=== PATIENT | male | born 1945 | race Caucasian/White ===

== ENCOUNTER → 2018-12-10 | Outpatient (CLI) | payer OTHER ==
[~2018-12-10] MED LIST: ABAC300; ALUMAGSIMA PO; AMLO5 PO; AMOCLA875 PO; ASCO500 PO; ASPI325 PO; ASPI325EC PO; ASPI500 PO; ASPI81CH; ASPI81CH PO; ATOR40TA; ATOR40TA PO; ATOR80 PO; CAPHYD PO; CARB50; CARV6.25 PO; CELE200 PO; CHOL10002 PO; CINNAMON PO; CLOP75; CLOP75 PO; CYAN500 PO; Crestor20 MG PO; ESOM20; ESOM20 PO; FERR325; FLUSAL1005; FLUSAL1005 IH; Ferrous Sulfat324 MG PO; INVOKANA100 MG PO; IRON150C PO; LISHYD1012 PO; LISHYD2025 PO; LISI20 PO; METF500 PO; METF500C PO; MILK THISTLE PO; MILK THISTLE1 GM MT; NITRSPRAY; Nitrostat0.4 MG SL; OMEG1CAP30 PO; OSTEO BI-FLEX1 EAC3 PO; PANT40 PO; RAMI5; RANO500T PO; ROSI4; Ranexa1000 MG; SIMV40 PO; SITA100T2 PO; VITAMIN B-12; VITAMIN D400 UNI1 PO; Vitamin C100 M1 PO; [UNRECOGNIZED DRUG - CODE] SL; [UNRECOGNIZED DRUG - REMARK]
== END | disposition home or self-care (01) ==
LOC: LAB 19:30 → LAB SHORT 19:30
DX: R63.4 Abnormal weight loss (principal); R19.7 Diarrhea, unspecified; Z79.2 Long term (current) use of antibiotics
CPT/HCPCS: 87015; 87045; 87046; 87177; 87205; 87209; 87493; 87899

== ENCOUNTER 2019-04-18 07:31 | Inpatient (IN) | payer OTHER ==
[~2019-04-18] VITALS: Ht 172.7 cm; Wt 77.0 kg
[~2019-04-18 07:31] MED LIST changes: -LISHYD1012 PO; +ZESTORETIC 20-251 EA PO
[2019-04-18] MEDS ORDERED: TRULICITY1.5 MG/0.5 SC (07:39)
[2019-04-18 08:15] LABS: BASOPHILS PERCENT AUTO 0 % (0-2); EOSINOPHILS PERCENT AUTO 0 % (0-6); Hemoglobin 10.9 g/dL (13.5-17.5); IMMATURE GRAN ABSOLUTE AUTO 0.02 K/mm3 (0.00-0.10); IMMATURE GRAN PERCENT AUTO 0 % (0-1); LYMPHOCYTES ABSOLUTE AUTO 2.13 K/mm3 (0.84-5.20); LYMPHOCYTES PERCENT AUTO 23 % (21-46); MONOCYTES ABSOLUTE AUTO 0.59 K/mm3 (0.16-1.47); MONOCYTES PERCENT AUTO 6 % (4-13); Mean Corpuscular HGB 30.9 pg (26.0-34.0); Mean Corpuscular HGB Conc 32.1 g/dL (31.5-36.5); Mean Corpuscular Volume 96 fL (80-100); Mean Platelet Volume 11.7 fL (9.1-12.4); NEUTROPHILS PERCENT AUTO 70 % (41-73); Platelet Count 189 K/mm3 (150-400); RDW Coefficient Variation 13.4 % (11.7-14.2); RDW Standard Deviation 47.4 fL (35.1-46.3); Red Blood Cell Count 3.53 M/mm3 (4.30-5.90); White Blood Cell Count 9.24 K/mm3 (4.00-11.30)
[2019-04-18 08:36] LABS: Alanine Aminotransfer (ALT/SGP 40 U/L (12-78); Albumin/Globulin Ratio 0.8 (0.8-1.8); Alk Phos 65 U/L (50-136); Anion Gap 8 mmol/L (6-16); Aspartate Aminotrans (AST/SGOT 20 U/L (12-37); Bilirubin, Total 0.3 mg/dL (0.1-1.0); Blood Urea Nitrogen 49 mg/dL (8-24); Bun/Creatinine Ratio 40.8 (12.0-20.0); CO2, Blood 21 mmol/L (21-32); Calcium, Blood 8.3 mg/dL (8.5-10.1); Chloride, Blood 112 mmol/L (98-108); Globulin, Blood 3.8 g/dL (2.2-4.0); Glomerular Filtration Rate >60 (60-); Glucose, Blood 354 mg/dL (70-99); Potassium, Blood 5.3 mmol/L (3.5-5.5); Sodium, Blood 141 mmol/L (136-145); Total Protein, Blood 6.8 g/dL (6.4-8.2); Troponin I <0.015 ng/mL (0.000-0.040)
[2019-04-18 10:53] LABS: International Normalized Ratio 1.06; Prothrombin Time Results 11.2 Sec (9.7-11.5)
[2019-04-18] MEDS ORDERED: ALBU90OI INH (12:10)
[2019-04-18] MEDS ORDERED: Glucosamine H1500 MG PO (12:11)
[2019-04-18] MEDS ORDERED: VITAMIN D5000 UNI1 PO (12:11)
[2019-04-18] MEDS ORDERED: Aspir 8181 MG PO (12:12)
[2019-04-18 13:19] LABS: Hematocrit 32.7 % (37.0-53.0); Hemoglobin 10.8 g/dL (13.5-17.5)
--- NOTE | 2019-04-18 15:42 | NUR ---
PT RESTING IN BED VISITING WITH FAMILY. PT IS CURRENTLY NPO FOR POSSIBLE ENDOSCOPY TONIGHT. CALLED SAME DAY AND THEY REPORT THAT THEY TENATIVELY WILL TAKE THE PT BETWEEN [phone]. PT HAS HAD NO BM'S SINCE ARRIVING TO DEPARTMENT. VITALS ARE CURRENTLY STABLE.
--- NOTE | 2019-04-18 16:05 | NUR ---
PT TO SAME DAY SURGERY FOR ENDOSCOPE.
--- NOTE | 2019-04-18 16:22 | NUR ---
ARRIVED INTO [facility] ADMISSION TO UNIT STARTED
--- NOTE | 2019-04-18 16:35 | NUR ---
04/18/19 1635 Ananth Lazo See Anesthesia record. Bite Block Placed. 3-LEAD EKG REVIEWED WITH PHYSICIAN PRIOR TO START OF PROCEDURE. Patient to ENDO 1History, Chart, Medications and Allergies reviewed before start of procedure. MONITOR INTACT WITH CONTINUOUS PULSE OXIMETRY AND INTERMITTENT BP. O2 VIA N/C INTACT THROUGHOUT SEDATION/PROCEDURE.
--- NOTE | 2019-04-18 17:14 | NUR ---
PT ARRIVED BACK FROM SAME DAY SURGERY. KELLY RN, REPORTED NO ACTIVE BLEED FOUND, OLD CLOTS IN STOMACH AND LEFT OVER FOOD. POSSIBLE REPEAT SCOPE TOMORROW IF PT'S H/H DROPS. PT IS DROWSY, BUT ABLE TO SUPPORT HIS OWN WEIGHT WHILE TRANSFERING. PT DECLINES ANY DIZZINESS AT THIS TIME. ORDERS ALLOW PT TO HAVE CLEAR LIQUIDS, PT GIVEN WATER TO HELP HIS DRY MOUTH. PER ELECTRONIC WARFARE SPECIALIST, PT REMAINS IN A-FIB. LUNGS ARE CLEAR AND PT IS ON ROOM AIR. VITALS ARE STABLE.
[2019-04-18 17:43] LABS: Hematocrit 32.3 % (37.0-53.0); Hemoglobin 10.4 g/dL (13.5-17.5)
--- NOTE | 2019-04-18 18:26 | NUR ---
SHIFT SUMMARY PT IS RECOVERY WELL FROM ENDOSCOPY. VSS. PT AMBULATED TO BATHROOM AND HAD ONE BM WHICH WAS BLACK IN COLOR. PT REMAINS IN A-FIB POST PROCEDURE PER TELE. PT IS BECOMING MORE ALERT AND IS CURRENTLY WATCHING TV. PT TOLERATED A CLEAR LIQUID DIET.
[2019-04-18 21:20] LABS: Hematocrit 28.6 % (37.0-53.0); Hemoglobin 9.4 g/dL (13.5-17.5)
--- NOTE | 2019-04-19 00:24 | NUR ---
0020 PT COMPLAINT OF 12/14 SUDDEN CP. SUBLING NITRO GIVEN X1 PER ORDERS WITH RELIEF DOWN TO 2/10 PER PT. VSS. PT STATES: "THIS HAPPENS ON OCCASION".
[2019-04-19 03:42] LABS: BASOPHILS ABSOLUTE AUTO 0.02 K/mm3 (0.00-0.23); BASOPHILS PERCENT AUTO 0 % (0-2); EOSINOPHILS ABSOLUTE AUTO 0.03 K/mm3 (0.00-0.68); EOSINOPHILS PERCENT AUTO 0 % (0-6); Hematocrit 27.9 % (37.0-53.0); IMMATURE GRAN ABSOLUTE AUTO 0.03 K/mm3 (0.00-0.10); IMMATURE GRAN PERCENT AUTO 0 % (0-1); LYMPHOCYTES ABSOLUTE AUTO 2.24 K/mm3 (0.84-5.20); LYMPHOCYTES PERCENT AUTO 30 % (21-46); MONOCYTES ABSOLUTE AUTO 0.57 K/mm3 (0.16-1.47); MONOCYTES PERCENT AUTO 8 % (4-13); Mean Corpuscular HGB 31.4 pg (26.0-34.0); Mean Corpuscular HGB Conc 32.3 g/dL (31.5-36.5); Mean Corpuscular Volume 97 fL (80-100); Mean Platelet Volume 11.5 fL (9.1-12.4); NEUTROPHILS ABSOLUTE AUTO 4.47 K/mm3 (1.96-9.15); NEUTROPHILS PERCENT AUTO 61 % (41-73); Platelet Count 152 K/mm3 (150-400); RDW Coefficient Variation 13.5 % (11.7-14.2); RDW Standard Deviation 48.7 fL (35.1-46.3); Red Blood Cell Count 2.87 M/mm3 (4.30-5.90); White Blood Cell Count 7.36 K/mm3 (4.00-11.30)
[2019-04-19 03:56] LABS: Anion Gap 6 mmol/L (6-16); Blood Urea Nitrogen 44 mg/dL (8-24); Bun/Creatinine Ratio 39.3 (12.0-20.0); CO2, Blood 23 mmol/L (21-32); Calcium, Blood 8.1 mg/dL (8.5-10.1); Chloride, Blood 117 mmol/L (98-108); Creatinine, Blood 1.12 mg/dL (0.60-1.20); Glomerular Filtration Rate >60 (60-); Glucose, Blood 164 mg/dL (70-99); Potassium, Blood 3.8 mmol/L (3.5-5.5); Sodium, Blood 146 mmol/L (136-145)
--- NOTE | 2019-04-19 05:55 | NUR ---
Shift Summary No acute changes overnight apart from previous note of CP which was resolved with nitro-quick x1 per orders. VSS. Breathing easy, even, unlabored of RA. Alert and Oriented, walking without assist in room, denies dizziness with ambulation. No events on tele, pt remains in controlled afib throughout night. No active signs of bleeding. Pt with no complaints throughout night of pain or of concerns. No acute declines no note. No acute concerns to note. No changes from initial shift assessment. Overall status of patient appears to be improving as evidenced by hbg stability, vss, pt alert and without complaints, no active GIB noted this shift.
--- NOTE | 2019-04-19 07:30 | NUR ---
ASSUMED CARE: PT RESTING QUIETLY AT THIS TIME. NO ACUTE NEEDS OR CONCERNS AT THIS TIME.
--- NOTE | 2019-04-19 09:22 | NUR ---
PT C/O SUDDEN LEFT CP AFTER COUGHING. 1 SL NITRO GIVEN PER PT REQUEST. PT REPORTS PAIN IS SIMILAR TO HIS EPISODES HE GETS AT HOME. DR ROMAN IS AWARE OF THESE EPISODES AND WANTS TO CONTIUE TO TREAT PER PT'S HOME REGIMEN. PT'S WAS D/C'D PRIOR TO CP EPISODE PER DR'S ORDERS. PT FELT IMMEDIATE RELIEF AFTER SL NITRO. PT HAD DROP IN BP POST NITRO ADMINISTRATION SYSTOLIC 80'S, BUT RECOVERED SHORTLY AFTER.
--- NOTE | 2019-04-19 11:23 | NUR ---
TRANSFER OF CARE REPORT GIVEN TO MELISSA CANALES. PT HAS BEEN TRANSFERED TO MEDICAL FLOOR ROOM 328 WITH NO TELE PER ORDERS. ALL BELONGINGS GATHERED AND TRANSFERRED WITH PT. PCT ESCORTED PT TO MEDICAL VIA WHEELCHAIR.
--- NOTE | 2019-04-19 13:41 | NUR ---
PT BROUGHT TO [facility] VIA STRETCHER APPROX 15 MINUTES AGO. PATIENT ALERT, ORIENTED. AT BEDSIDE. NO C/O PAIN OR DISCOMFORT. ANESTHESISA HERE TO SEE PATIENT FOR PLANNED EGD WITH MAC.
--- NOTE | 2019-04-19 14:00 | NUR ---
UPDATE: NO ANESTHESIA FOR CASE - NURSE SEDATION
--- NOTE | 2019-04-19 14:50 | NUR ---
PATIENT BACK FROM DAY SURGERY. VSS, ON RA. PATIENT ABLE TO TRANSFER WITH A SBA. PROTONIX GTT AND IV FLUIDS RESUMED.
[2019-04-19 15:27] LABS: Hematocrit 26.9 % (37.0-53.0); Hemoglobin 8.8 g/dL (13.5-17.5)
--- NOTE | 2019-04-19 18:00 | NUR ---
PATIENT TRANSFERRED FROM PCU TODAY. WENT DOWN FOR A SECOND ENDOSCOPY THIS AFTERNOON. PROTONIX GTT D/C'D AND PATIENT PUT ON PROTONIX PUSHES BID. VSS, ON RA. DENIES ANY PAIN OR TENDERNESS. UP WITH SBA TO RESTROOM. REPORTS 1 BLACK STOOL TODAY, NO STOOL SINCE TRANSFERRING TO MEDICAL FLOOR. SKIN INTACT. 20G IV TO L AC WNL, NS @ 75ML/HR INFUSING. AT BEDSIDE FOR MOST OF THIS SHIFT. TOLERATING CLEAR LIQUIDS. ACHS BLOOD SUGARS, NO COVERAGE NEEDED TODAY. PATIENT IS A/OX4, CALM AND COOPERATIVE WITH CARE.
--- NOTE | 2019-04-19 19:50 | NUR ---
PATIENT WATCHING TV, DENIES ANY PAIN OR DISCOMFORT. DENIES ANY CHEST PAIN AT THIS TIME. IV INFUSING WITH NO PROBLEMS. ASSESSMENT COMPLETED SEE CHART. CALL LIGHT IN REACH.
[2019-04-20 04:59] LABS: BASOPHILS ABSOLUTE AUTO 0.01 K/mm3 (0.00-0.23); BASOPHILS PERCENT AUTO 0 % (0-2); EOSINOPHILS ABSOLUTE AUTO 0.09 K/mm3 (0.00-0.68); EOSINOPHILS PERCENT AUTO 2 % (0-6); Hematocrit 23.9 % (37.0-53.0); Hemoglobin 7.8 g/dL (13.5-17.5); IMMATURE GRAN ABSOLUTE AUTO 0.02 K/mm3 (0.00-0.10); IMMATURE GRAN PERCENT AUTO 0 % (0-1); LYMPHOCYTES ABSOLUTE AUTO 1.78 K/mm3 (0.84-5.20); LYMPHOCYTES PERCENT AUTO 31 % (21-46); MONOCYTES ABSOLUTE AUTO 0.39 K/mm3 (0.16-1.47); MONOCYTES PERCENT AUTO 7 % (4-13); Mean Corpuscular HGB 31.7 pg (26.0-34.0); Mean Corpuscular HGB Conc 32.6 g/dL (31.5-36.5); Mean Corpuscular Volume 97 fL (80-100); Mean Platelet Volume 11.5 fL (9.1-12.4); NEUTROPHILS ABSOLUTE AUTO 3.37 K/mm3 (1.96-9.15); NEUTROPHILS PERCENT AUTO 60 % (41-73); Platelet Count 120 K/mm3 (150-400); RDW Coefficient Variation 13.3 % (11.7-14.2); RDW Standard Deviation 47.8 fL (35.1-46.3); Red Blood Cell Count 2.46 M/mm3 (4.30-5.90); White Blood Cell Count 5.66 K/mm3 (4.00-11.30)
--- NOTE | 2019-04-20 06:00 | NUR ---
SHIFT SUMMARY: 73 Y/O MALE ADMITTED FOR GI BLEED. TABBY HAD NO EPISODES OF DARK STOOLS, NAUSEA THIS SHIFT. IV HAS REMAINED PATENT AND INFUSING AT 75ML/HR. DENIED ANY EPISODES OF DIZZINES, LIGHTHEADNESS OR CHEST PAIN. MEDS WERE GIVEN PER EMAR. NO ACUTE CHANGES THIS SHIFT. CALL LIGHT REMAINED WITH IN REACH. WILL REPORT TO DAY SHIFT RN.
--- NOTE | 2019-04-20 08:14 | NUR ---
04/20/19 0814 Joan Serna LATE ENTRY- History, Chart, Medications and Allergies reviewed before start of procedure. 3-LEAD EKG REVIEWED WITH PHYSICIAN PRIOR TO START OF PROCEDURE. MONITOR INTACT WITH CONTINUOUS PULSE OXIMETRY AND INTERMITTENT BP. O2 VIA N/C INTACT THROUGHOUT SEDATION/PROCEDURE. PATIENT DETERMINED TO BE ASA APPROPRIATE FOR PROPOFOL SEDATION PRIOR TO START OF PROCEDURE BY DR. HALL WHO REVIEWED CHART/ DR. MONTENEGRO AND DR. HALL HAD DISCUSSION PRIOR TO PROCEDURE AND AGREES TO PROCEDE WITH NURSE SEDATION W/PROPOFOL.
[2019-04-20 08:46] LABS: Hematocrit 24.4 % (37.0-53.0); Hemoglobin 7.9 g/dL (13.5-17.5)
[2019-04-20 15:08] LABS: Hemoglobin 7.8 g/dL (13.5-17.5)
--- NOTE | 2019-04-20 15:21 | NUR ---
Lungs clear T/O to Auscultation. History, Chart, Medications and Allergies reviewed before start of procedure.Patient confirms NPO status SINCE 2 PM,and agrees with scheduled surgery.
--- NOTE | 2019-04-20 15:33 | NUR ---
RECEIVED VERBAL PERMISSION FROM PATIENT TO ACCESS CHART AND PROVIDE CARE.
--- NOTE | 2019-04-20 15:46 | NUR ---
04/20/19 1546 Destiny Agarwal History, Chart, Medications and Allergies reviewed before start of procedure.PATIENT DETERMINED TO BE ASA APPROPRIATE FOR PROPOFOL SEDATION PRIOR TO START OF PROCEDURE BY MONITOR INTACT WITH CONTINUOUS PULSE OXIMETRY AND INTERMITTENT BP. 3-LEAD EKG REVIEWED WITH PHYSICIAN PRIOR TO START OF PROCEDURE.O2 VIA N/C INTACT THROUGHOUT SEDATION/PROCEDURE.
--- NOTE | 2019-04-20 18:47 | NUR ---
SHIFT SUMMARY NO ACUTE CHANGES. PATIENT DENIES PAIN, NAUSEA, AND SHORTNESS OF BREATH. PATIENT HAD ONE BLACK LOOSE STOOL THIS MORNING. PATIENT HAD CTA OF ABDOMEN TODAY AND UPPER ENDOSCOPY. PETECHIA IN STOMACH CAUTERIZED BUT NO ACTIVE BLEED WAS FOUND. PATIENT UP SBA IN ROOM. AT BEDSIDE. CALL LIGHT IN REACH.
[2019-04-21 05:03] LABS: BASOPHILS ABSOLUTE AUTO 0.01 K/mm3 (0.00-0.23); BASOPHILS PERCENT AUTO 0 % (0-2); EOSINOPHILS PERCENT AUTO 1 % (0-6); Hematocrit 22.1 % (37.0-53.0); Hemoglobin 7.3 g/dL (13.5-17.5); IMMATURE GRAN ABSOLUTE AUTO 0.02 K/mm3 (0.00-0.10); IMMATURE GRAN PERCENT AUTO 0 % (0-1); LYMPHOCYTES ABSOLUTE AUTO 1.41 K/mm3 (0.84-5.20); LYMPHOCYTES PERCENT AUTO 20 % (21-46); MONOCYTES ABSOLUTE AUTO 0.52 K/mm3 (0.16-1.47); MONOCYTES PERCENT AUTO 7 % (4-13); Mean Corpuscular HGB 31.9 pg (26.0-34.0); Mean Corpuscular Volume 97 fL (80-100); Mean Platelet Volume 11.5 fL (9.1-12.4); NEUTROPHILS ABSOLUTE AUTO 5.02 K/mm3 (1.96-9.15); NEUTROPHILS PERCENT AUTO 71 % (41-73); Platelet Count 122 K/mm3 (150-400); RDW Coefficient Variation 13.3 % (11.7-14.2); RDW Standard Deviation 47.3 fL (35.1-46.3); Red Blood Cell Count 2.29 M/mm3 (4.30-5.90); White Blood Cell Count 7.08 K/mm3 (4.00-11.30)
--- NOTE | 2019-04-21 05:04 | NUR ---
SHIFT SUMMARY: A/OX4. VSS. AFEB. 02 98-100% ON RA. MAKES NEEDS KNOWN. CALLS FOR ASSISTANCE WITH AMB TO BATHROOM. GAIT STEADY AND WELL PACED. NO LIGHT HEADEDNESS UPON STANDING. OCC DRY COUGH. FINE INSP CRACKLES AUSCULTATED IN LLL. REQUESTED NITRO FOR CHEST PAIN ON 2 SEPARATE OCCASIONS TONIGHT. CHEST PAIN RESOLVED WITH 2 MINUTES EACH TIME. REPORTS NEW LOW BACK PAIN 8/10, DOWN TO 5/10 WITH TYLENOL AND K PAD ON BACK. SLEPT MOST OF THE NIGHT. CALL BUTTON IN REACH, BED LOW.
[2019-04-21 09:27] LABS: Hemoglobin 8.1 g/dL (13.5-17.5)
--- NOTE | 2019-04-21 18:40 | NUR ---
SHIFT SUMMARY PATIENT IS PLEASANT, NO ACUTE CONCERNS AT THIS TIME. PATIENT IS INDEPENDENT IN THE ROOM, DENIES PAIN OR SHORTNESS OF BREATH. MOVED TO REGULAR DIET. PATIENT TOLERATING THINGS WELL.
--- NOTE | 2019-04-21 22:33 | NUR ---
PT REPORTED TWINGE OF CHEST PAIN AFTER COUGHING. STATES HE TAKES NITRO AT HOME OCCASIONALLY FOR CHEST PAIN, STATES HE HAS CARDIAC PROBLEMS. VS 131/56, HR 67. ONE NITRO GIVEN. WILL REASSESS FOR CHEST PAIN AND VITAL SIGNS. CALL LT IN REACH.
--- NOTE | 2019-04-21 22:49 | NUR ---
120/57, HR 64. PT REPORTS NO CHEST PAIN AT THIS TIME. VSS.
--- NOTE | 2019-04-22 03:39 | NUR ---
AT APPROX 0140 PT C/O CP. HOLDING L SIDE OF CHEST SOB AND GRIMACING. GAVE NITRO PER EMAR AND AFTER 5 MIN STILL NO RELIEF SO GAVE 2ND DOSE OF NITRO AFTER TAKING BP OF 130/58. AFTER 2ND DOSE HE SAID THE PAIN WAS EASING UP BUT NOT ALL THE WAY GONE YET. GAVE 3RD DOSE AFTER 5 MIN AND THIS WAS ABLE TO TAKE THE PAIN AWAY COMPLETELY. NOTIFIED DR GONZALES AND HE ORDERED EKG AND TROPONIN C AM LABS AND TELE. TELE SHOWED SINUS SELENE @ 59 AT 0315 PER CHURN TENDER.
[2019-04-22 04:52] LABS: BASOPHILS ABSOLUTE AUTO 0.01 K/mm3 (0.00-0.23); BASOPHILS PERCENT AUTO 0 % (0-2); EOSINOPHILS ABSOLUTE AUTO 0.13 K/mm3 (0.00-0.68); EOSINOPHILS PERCENT AUTO 2 % (0-6); Hematocrit 21.8 % (37.0-53.0); Hemoglobin 7.2 g/dL (13.5-17.5); IMMATURE GRAN ABSOLUTE AUTO 0.03 K/mm3 (0.00-0.10); IMMATURE GRAN PERCENT AUTO 0 % (0-1); LYMPHOCYTES ABSOLUTE AUTO 1.41 K/mm3 (0.84-5.20); LYMPHOCYTES PERCENT AUTO 18 % (21-46); MONOCYTES ABSOLUTE AUTO 0.57 K/mm3 (0.16-1.47); MONOCYTES PERCENT AUTO 7 % (4-13); Mean Corpuscular HGB 31.6 pg (26.0-34.0); Mean Corpuscular Volume 96 fL (80-100); Mean Platelet Volume 11.8 fL (9.1-12.4); NEUTROPHILS ABSOLUTE AUTO 5.67 K/mm3 (1.96-9.15); NEUTROPHILS PERCENT AUTO 73 % (41-73); Platelet Count 142 K/mm3 (150-400); RDW Coefficient Variation 13.4 % (11.7-14.2); RDW Standard Deviation 46.5 fL (35.1-46.3); Red Blood Cell Count 2.28 M/mm3 (4.30-5.90); White Blood Cell Count 7.82 K/mm3 (4.00-11.30)
--- NOTE | 2019-04-22 05:03 | NUR ---
APPROX 0410 PT C/O CP AGAIN. MEDICATED C NITRO WITH NO RELIEF SO 2ND DOSE WAS GIVEN AND HE SAID IT HELPED A LITTLE BIT. NOTIFIED DR GONZALES HE ORDERED OT ASPRIN AND OT FENTANYL PRN AND NITRO PASTE PRN. STILL HAVING SOME CP AFTER 2ND NITRO SO 3RD WAS GIVEN AND AFTER 3RD HIS CP WAS GONE HE SAID. VSS. HE SAID HE WAS NOW TIRED.
--- NOTE | 2019-04-22 07:14 | NUR ---
C/O CP AGAIN AT 0640 MEDICATED WITH FENTANYL IV OT AND THIS WAS ABLE TO RELIEVE HIS PAIN. REPORT TO DAY RN.
[2019-04-22 09:40] LABS: Hematocrit 23.8 % (37.0-53.0); Hemoglobin 7.8 g/dL (13.5-17.5)
--- NOTE | 2019-04-22 18:15 | NUR ---
SHIFT SUMMARY PATIENT ALERT AND ORIENTED. NO CHEST PAIN THIS SHIFT. HE WAS SEEN BY CARDIOLOGY. NO ACUTE CONCERNS AT THIS TIME. PATIENT IS PLEASANT. PAN SAW THE PATIENT AND REPORTS THAT HE NEEDS HIS BLOOD THINNER RESTARTED WHEN OKAYED BY DR. MONTENEGRO. DR. MONTENEGRO OKAYED THE ASPIRIN FOR NOW TO HELP THE PATIENT. PATIENT INDEPENDENT AND HAS TAKEN MULTIPLE WALKS TODAY.
--- NOTE | 2019-04-23 07:23 | NUR ---
SHIFT SUMMARY LYING IN SEMI FOWLERS WITH EYES CLOSED. HAD RESTED WELL SINCE START OF SHIFT. PT IS LOOKING FORWARD TO GOING HOME TODAY. DENIES PAIN, DISCOMFORT, OR FURTHER NEEDS AT THIS TIME. SAFETY MEASURES IN PLACE. HAND OFF GIVEN TO DAY SHIFT RN.
[2019-04-23] MEDS ORDERED: SUCR1 PO (13:06)
--- NOTE | 2019-04-23 14:23 | NUR ---
DISCHARGE SUMMARY PATIENT IS PLEASANT. ALERT AND ORIENTED. NO ACUTE CONCERNS. ALL QUESTIONS ANSWERED. PATIENT AND AT BEDSIDE WITH DISCHARGE INSTRUCTIONS. ALL MEDICATIONS SENT TO PATIENT'S PHARMACY OF CHOICE. NO ACUTE CONCERNS BEFORE DISCHARGE. PATIENT REFUSED WHEELCHAIR TRANSPORT FROM THE HOSPITAL. HE WALKED OUT WITH HIS .
== END 2019-04-23 13:18 | disposition home or self-care (01) | DRG 378 ==
LOC: ER 07:31 → MEDS 13:05 → PCU 13:05 → MEDS 04-19 11:22
PROVIDERS: Emergency Medicine; Hospitalist; Internal Medicine Gastroenterology; Nurse Practitioner Acute Care; ADMIT Internal Medicine
PROC: 0DJ08ZZ Inspection of Upper Intestinal Tract, Via Natural or Artificial Opening Endoscopic (ICD-10-PCS; principal; 2019-04-18 16:00)
PROC: 0W3P8ZZ Control Bleeding in Gastrointestinal Tract, Via Natural or Artificial Opening Endoscopic (ICD-10-PCS; 2019-04-19)
PROC: 0D568ZZ Destruction of Stomach, Via Natural or Artificial Opening Endoscopic (ICD-10-PCS; 2019-04-20)
DX: K55.21 Angiodysplasia of colon with hemorrhage (principal); D62 Acute posthemorrhagic anemia; I48.20 Chronic atrial fibrillation, unspecified; Z87.891 Personal history of nicotine dependence; K22.11 Ulcer of esophagus with bleeding; Z79.82 Long term (current) use of aspirin; Z95.1 Presence of aortocoronary bypass graft; E87.5 Hyperkalemia; E11.65 Type 2 diabetes mellitus with hyperglycemia; I10 Essential (primary) hypertension; Z79.84 Long term (current) use of oral hypoglycemic drugs; K44.9 Diaphragmatic hernia without obstruction or gangrene; K21.9 Gastro-esophageal reflux disease without esophagitis; Z79.02 Long term (current) use of antithrombotics/antiplatelets; I25.118 Atherosclerotic heart disease of native coronary artery with other forms of angina pectoris
CPT/HCPCS: 36415; 71046; 74174; 80048; 80053; 82272; 82947; 84484; 85014; 85018; 85025; 85610; 86850; 86900; 86901; 93005; 93010; 93306; 96365-59; 96366; 96376-59; 99285-25; A9270; C9113; J2704; J2765; J3010; J7030; J7120; Q9967

== ENCOUNTER → 2019-08-24 | Outpatient (CLI) | payer OTHER ==
[~2019-08-24] MED LIST changes: +ALBU90OI INH; +Aspir 8181 MG PO; +Glucosamine H1500 MG PO; +SUCR1 PO; +TRULICITY1.5 MG/0.5 SC; +VITAMIN D5000 UNI1 PO
== END | disposition home or self-care (01) ==
LOC: LAB SHORT 19:30 → OLS 19:30
DX: R19.7 Diarrhea, unspecified (principal)
CPT/HCPCS: 87177; 87209

== ENCOUNTER → 2019-08-25 | Outpatient (CLI) | payer OTHER | END | disposition home or self-care (01) | LOC: OLS 12:33 → LAB SHORT 12:33 | DX: R19.7 Diarrhea, unspecified (principal) | CPT/HCPCS: 87015; 87045; 87046; 87205; 87493; 87899 ==

== ENCOUNTER → 2021-02-14 | Outpatient (CLI) | payer OTHER | END | disposition home or self-care (01) | LOC: LAB SHORT 12:19 → LAB 12:19 | DX: L08.9 Local infection of the skin and subcutaneous tissue, unspecified (principal); L97.319 Non-pressure chronic ulcer of right ankle with unspecified severity | CPT/HCPCS: 87070; 87077; 87186; 87205 ==

== ENCOUNTER 2021-03-09 18:06 | Emergency (ER) | payer OTHER ==
[~2021-03-09] VITALS: Ht 177.8 cm; Wt 99.8 kg
[2021-03-09 18:31] LABS: BASOPHILS ABSOLUTE AUTO 0.02 K/mm3 (0.00-0.23); BASOPHILS PERCENT AUTO 0 % (0-2); EOSINOPHILS ABSOLUTE AUTO 0.05 K/mm3 (0.00-0.68); EOSINOPHILS PERCENT AUTO 1 % (0-6); Hematocrit 33.9 % (37.0-53.0); Hemoglobin 11.5 g/dL (13.5-17.5); IMMATURE GRAN ABSOLUTE AUTO 0.01 K/mm3 (0.00-0.10); IMMATURE GRAN PERCENT AUTO 0 % (0-1); LYMPHOCYTES ABSOLUTE AUTO 1.52 K/mm3 (0.84-5.20); LYMPHOCYTES PERCENT AUTO 24 % (21-46); MONOCYTES ABSOLUTE AUTO 0.44 K/mm3 (0.16-1.47); MONOCYTES PERCENT AUTO 7 % (4-13); Mean Corpuscular HGB 31.8 pg (26.0-34.0); Mean Corpuscular HGB Conc 33.9 g/dL (31.5-36.5); Mean Corpuscular Volume 94 fL (80-100); Mean Platelet Volume 10.9 fL (9.1-12.4); NEUTROPHILS ABSOLUTE AUTO 4.26 K/mm3 (1.96-9.15); NEUTROPHILS PERCENT AUTO 68 % (41-73); Platelet Count 177 K/mm3 (150-400); RDW Coefficient Variation 12.1 % (11.7-14.2); RDW Standard Deviation 42.1 fL (35.1-46.3); Red Blood Cell Count 3.62 M/mm3 (4.30-5.90)
[2021-03-09] MEDS ORDERED: PANT40 PO (18:31)
[2021-03-09] MEDS ORDERED: LORA10ER PO (18:33)
[2021-03-09] MEDS ORDERED: METO25ER PO (18:33)
[2021-03-09] MEDS ORDERED: BASAGLAR K100 UNIT/1 SC (18:37)
[2021-03-09] MEDS ORDERED: [UNRECOGNIZED DRUG - OTHER] PO (18:38)
[2021-03-09] MEDS ORDERED: Apple Cider Vi300 MG PO (18:41)
[2021-03-09 18:54] LABS: Alanine Aminotransfer (ALT/SGP 22 U/L (12-78); Albumin, Blood 3.1 g/dL (3.4-5.0); Albumin/Globulin Ratio 0.8 (0.8-1.8); Alk Phos 66 U/L (50-136); Anion Gap 6 mmol/L (6-16); Aspartate Aminotrans (AST/SGOT 20 U/L (12-37); Bilirubin, Total 0.4 mg/dL (0.1-1.0); Blood Urea Nitrogen 14 mg/dL (8-24); Bun/Creatinine Ratio 14.3 (12.0-20.0); CO2, Blood 26 mmol/L (21-32); Calcium, Blood 8.6 mg/dL (8.5-10.1); Chloride, Blood 110 mmol/L (98-108); Creatinine, Blood 0.98 mg/dL (0.60-1.20); Globulin, Blood 4.1 g/dL (2.2-4.0); Glomerular Filtration Rate >60 (60-); Glucose, Blood 173 mg/dL (70-99); Potassium, Blood 3.9 mmol/L (3.5-5.5); Sodium, Blood 142 mmol/L (136-145); Total Protein, Blood 7.2 g/dL (6.4-8.2)
[2021-03-09 19:48] LABS: SARS-Cov-2 (COVID-19) PCR, MMC NEGATIVE (NEGATIVE)
[2021-03-09] MEDS ORDERED: MOTION RELIEF25 MG PO (23:26)
== END 2021-03-09 23:45 | disposition home or self-care (01) ==
LOC: ER 18:06
PROVIDERS: Student in an Organized Health Care Education/Training Program
DX: R42 Dizziness and giddiness (principal); Z20.822 Contact with and (suspected) exposure to COVID-19; I25.10 Atherosclerotic heart disease of native coronary artery without angina pectoris; I10 Essential (primary) hypertension; E11.9 Type 2 diabetes mellitus without complications; K21.9 Gastro-esophageal reflux disease without esophagitis; E78.5 Hyperlipidemia, unspecified; I48.20 Chronic atrial fibrillation, unspecified; Z87.891 Personal history of nicotine dependence; Z79.82 Long term (current) use of aspirin; Z79.899 Other long term (current) drug therapy
CPT/HCPCS: 71046; 80053; 84484; 85025; 93005; 93010; 99285-25; A9270; J7030; U0004

== ENCOUNTER 2021-05-19 07:24 | Day surgery (SDC) | payer OTHER ==
[~2021-05-19] VITALS: Ht 175.3 cm; Wt 95.0 kg
[~2021-05-19 07:24] MED LIST changes: +Apple Cider Vi300 MG PO; +BASAGLAR K100 UNIT/1 SC; +LORA10ER PO; +METO25ER PO; +MOTION RELIEF25 MG PO; -VITAMIN D5000 UNI1 PO; +VITAMIN D5000 UNIT PO; +[UNRECOGNIZED DRUG - OTHER] PO
[2021-05-19] MEDS ORDERED: ELIQUIS5 M2 PO (07:49)
[2021-05-19] MEDS ORDERED: Aspir 8181 MG PO (10:08)
--- NOTE | 2021-05-19 13:12 | NUR ---
FEM STOP REMOVED PER PT UP TO BATHROOM, GROIN SITE STABLE. WALKED AROUND RECOVERY ROOM, GROIN SITE REMAINS STABLE. DISCHARGE REVIEWED WITH AND PT, BOTH VERBALIZE UNDERSTANDING OF INSTRUCTIONS.
--- NOTE | 2021-05-19 13:21 | NUR ---
SALINE LOCK REMOVED WITH CATHETER INTACT. PT DISCHARGED PER W/C WITH ONE STAFF.
== END 2021-05-19 13:30 | disposition home or self-care (01) ==
LOC: MHTC 07:24
DX: T82.855A Stenosis of coronary artery stent, initial encounter (principal); I25.718 Atherosclerosis of autologous vein coronary artery bypass graft(s) with other forms of angina pectoris; I25.84 Coronary atherosclerosis due to calcified coronary lesion; I48.0 Paroxysmal atrial fibrillation; E78.5 Hyperlipidemia, unspecified; E11.51 Type 2 diabetes mellitus with diabetic peripheral angiopathy without gangrene; I10 Essential (primary) hypertension; Y71.2 Prosthetic and other implants, materials and accessory cardiovascular devices associated with adverse incidents; Z79.4 Long term (current) use of insulin; Z79.01 Long term (current) use of anticoagulants; Z95.1 Presence of aortocoronary bypass graft; Z87.891 Personal history of nicotine dependence
CPT/HCPCS: 76937; 85347; 92920; 92937; 93459; 99152; 99153; A9270; C1725; C1760; C1769; C1887; C1894; J0461; J1644; J2250; J2370; J3010; J7030; J7050; Q9967

== ENCOUNTER 2021-06-22 07:52 | Inpatient (IN) | payer OTHER ==
[~2021-06-22] VITALS: Ht 172.7 cm; Wt 94.2 kg
[~2021-06-22 07:52] MED LIST changes: +ELIQUIS5 M2 PO
[2021-06-22 08:58] LABS: BASOPHILS ABSOLUTE AUTO 0.03 K/mm3 (0.00-0.23); BASOPHILS PERCENT AUTO 0 % (0-2); EOSINOPHILS PERCENT AUTO 1 % (0-6); Hematocrit 29.6 % (37.0-53.0); Hemoglobin 9.1 g/dL (13.5-17.5); IMMATURE GRAN ABSOLUTE AUTO 0.04 K/mm3 (0.00-0.10); IMMATURE GRAN PERCENT AUTO 0 % (0-1); LYMPHOCYTES ABSOLUTE AUTO 1.58 K/mm3 (0.84-5.20); LYMPHOCYTES PERCENT AUTO 16 % (21-46); MONOCYTES PERCENT AUTO 7 % (4-13); Mean Corpuscular HGB 30.2 pg (26.0-34.0); Mean Corpuscular HGB Conc 30.7 g/dL (31.5-36.5); Mean Corpuscular Volume 98 fL (80-100); Mean Platelet Volume 10.7 fL (9.1-12.4); NEUTROPHILS ABSOLUTE AUTO 7.28 K/mm3 (1.96-9.15); NEUTROPHILS PERCENT AUTO 75 % (41-73); Platelet Count 221 K/mm3 (150-400); RDW Coefficient Variation 13.1 % (11.7-14.2); RDW Standard Deviation 46.5 fL (35.1-46.3); Red Blood Cell Count 3.01 M/mm3 (4.30-5.90); White Blood Cell Count 9.73 K/mm3 (4.00-11.30)
[2021-06-22] MEDS ORDERED: RANEXA1000 M1 PO (09:08)
[2021-06-22] MEDS ORDERED: ISOSORBIDE MONO60 MG PO (09:08)
[2021-06-22] MEDS ORDERED: PLAVIX75 MG PO (09:09)
[2021-06-22] MEDS ORDERED: Lisinopril-Hct1 EAC4 PO (09:11)
[2021-06-22 09:29] LABS: Alanine Aminotransfer (ALT/SGP 22 U/L (12-78); Albumin, Blood 3.6 g/dL (3.4-5.0); Albumin/Globulin Ratio 0.9 (0.8-1.8); Alk Phos 82 U/L (50-136); Anion Gap 6 mmol/L (6-16); Aspartate Aminotrans (AST/SGOT 36 U/L (12-37); Bilirubin, Total 0.5 mg/dL (0.1-1.0); Blood Urea Nitrogen 21 mg/dL (8-24); Bun/Creatinine Ratio 19.8 (12.0-20.0); CO2, Blood 28 mmol/L (21-32); Calcium, Blood 9.1 mg/dL (8.5-10.1); Chloride, Blood 109 mmol/L (98-108); Creatinine, Blood 1.06 mg/dL (0.60-1.20); Globulin, Blood 4.1 g/dL (2.2-4.0); Glomerular Filtration Rate >60 (60-); Glucose, Blood 222 mg/dL (70-99); Potassium, Blood 4.3 mmol/L (3.5-5.5); Sodium, Blood 143 mmol/L (136-145); Total Protein, Blood 7.7 g/dL (6.4-8.2)
[2021-06-22 10:28] LABS: Anti-Xa UFH, PHA Monitoring <0.10 IU/mL; Prothrombin Time Results 11.5 Sec (9.7-11.5)
[2021-06-22 11:44] LABS: Influenza A, PCR NEGATIVE (NEGATIVE); Influenza B, PCR NEGATIVE (NEGATIVE); Resp Syncytial Virus, PCR NEGATIVE (NEGATIVE); SARS-Cov-2 (COVID-19) PCR, MMC NEGATIVE (NEGATIVE)
[2021-06-22 17:52] LABS: BASOPHILS ABSOLUTE AUTO 0.03 K/mm3 (0.00-0.23); BASOPHILS PERCENT AUTO 0 % (0-2); EOSINOPHILS ABSOLUTE AUTO 0.08 K/mm3 (0.00-0.68); EOSINOPHILS PERCENT AUTO 1 % (0-6); Hematocrit 32.2 % (37.0-53.0); Hemoglobin 9.6 g/dL (13.5-17.5); IMMATURE GRAN ABSOLUTE AUTO 0.03 K/mm3 (0.00-0.10); IMMATURE GRAN PERCENT AUTO 0 % (0-1); LYMPHOCYTES ABSOLUTE AUTO 1.66 K/mm3 (0.84-5.20); LYMPHOCYTES PERCENT AUTO 17 % (21-46); MONOCYTES ABSOLUTE AUTO 0.77 K/mm3 (0.16-1.47); MONOCYTES PERCENT AUTO 8 % (4-13); Mean Corpuscular HGB 30.4 pg (26.0-34.0); Mean Corpuscular HGB Conc 29.8 g/dL (31.5-36.5); Mean Corpuscular Volume 102 fL (80-100); Mean Platelet Volume 10.5 fL (9.1-12.4); NEUTROPHILS ABSOLUTE AUTO 7.18 K/mm3 (1.96-9.15); NEUTROPHILS PERCENT AUTO 74 % (41-73); Platelet Count 207 K/mm3 (150-400); RDW Coefficient Variation 13.1 % (11.7-14.2); RDW Standard Deviation 48.7 fL (35.1-46.3); Red Blood Cell Count 3.16 M/mm3 (4.30-5.90); White Blood Cell Count 9.75 K/mm3 (4.00-11.30)
--- NOTE | 2021-06-22 18:20 | NUR ---
SHIFT SUMMARY: ASSUMED CARE AT 1400 IN ED PCU HOLD. A/A/OX4, SPOUSE AT BEDSIDE, HEPARIN GTT AT 15UNITS/KG. INDEPENDANT IN ROOM, VSS, DENIES CHEST PAIN OR SOB. REPORT TO PARKER WHITE IN PCU TO ASSUME CARE AT 1800. TAKEN TO PCU ROOM 20 VIA DAYO.
--- NOTE | 2021-06-22 22:46 | NUR ---
ASSUMED CARE OF PATIENT AT START OF SHIFT. VSS. NITRO X2 AND 5MG MORPHINE GIVEN FOR CHEST PAIN. SOME DIZZINESS AND SOB WITH THIS. CHEST PAIN TOLERABLE 5/10 AFTER THIS. POWERGLIDE INSTERTED SALBADOR AND HEPARIN INFUSING AFTER ACCESS RESTORED AT 2029 AT 15UNITS/KG/HR. NO SIGNS OF BLEEDING. REPORT GIVEN TO FOUZIA CANALES AT [facility] IN [place] @2230. EMS REPORT GIVEN AND PATIENT DISCHARGED @2240 WITH NO ACUTE CONCERNS.
[2021-07-04] MEDS ORDERED: NITRO-DUR1 EAC1 TOP (16:32)
[2021-07-04] MEDS ORDERED: LOPE2C (16:32)
[2021-07-04] MEDS ORDERED: GLUCOSAMINE-CH1 EAC7 PO (16:34)
[2021-07-04] MEDS ORDERED: B-100 COMPLEX100 MG PO (16:35)
== END 2021-06-22 22:40 | disposition short-term general hospital (02) | DRG 281 ==
LOC: ER 07:52 → ERHOLD 12:44 → PCU 18:11
PROVIDERS: Emergency Medicine; ADMIT Hospitalist
DX: I21.4 Non-ST elevation (NSTEMI) myocardial infarction (principal); K92.2 Gastrointestinal hemorrhage, unspecified; D62 Acute posthemorrhagic anemia; I48.20 Chronic atrial fibrillation, unspecified; J81.1 Chronic pulmonary edema; E11.9 Type 2 diabetes mellitus without complications; I48.91 Unspecified atrial fibrillation; I25.10 Atherosclerotic heart disease of native coronary artery without angina pectoris; Z95.5 Presence of coronary angioplasty implant and graft; Z95.1 Presence of aortocoronary bypass graft; I10 Essential (primary) hypertension; K21.9 Gastro-esophageal reflux disease without esophagitis; Z90.49 Acquired absence of other specified parts of digestive tract; Z98.890 Other specified postprocedural states; Z79.899 Other long term (current) drug therapy; Z79.4 Long term (current) use of insulin; Z20.822 Contact with and (suspected) exposure to COVID-19
CPT/HCPCS: 0241U; 36415; 71045; 80053; 82947; 83880; 84484; 85025; 85520; 85610; 85730; 93005; 93010; 96365; 96375; 96376; 99285-25; A9270; C1751; J1644; J1815; J1940; J2270; J2370; J2405

== ENCOUNTER 2021-07-07 06:28 | Day surgery (SDC) | payer OTHER ==
[~2021-07-07 06:28] MED LIST changes: +B-100 COMPLEX100 MG PO; +GLUCOSAMINE-CH1 EAC7 PO; +ISOSORBIDE MONO60 MG PO; +LOPE2C; +Lisinopril-Hct1 EAC4 PO; +NITRO-DUR1 EAC1 TOP; +PLAVIX75 MG PO; +RANEXA1000 M1 PO
[2021-07-07] MEDS ORDERED: Isosorbide Mono60 MG PO (07:02)
--- NOTE | 2021-07-07 08:12 | NUR ---
PT TOLERATED WILBER WELL.
--- NOTE | 2021-07-07 08:30 | NUR ---
TR[place]ON OBSERVED THIS RN WASTE PROPOFOL.
--- NOTE | 2021-07-07 08:52 | NUR ---
DR KUNZ IN ROOM TO SEE PT AND TALK WITH HIS ON THE PHONE.
--- NOTE | 2021-07-07 09:06 | NUR ---
DISCHARGE INSTRUCTIONS REVIEWED AND ALL QUESTIONS ANSWERED. PT DRANK SIPS OF WATER WITH NO ASPIRATION.
--- NOTE | 2021-07-07 09:25 | NUR ---
22 G IV DISCONTINUED FROM RIGHT FA WITH INTACT CANNULA. PT ESCORTED OUT VIA WHEELCHAIR ESCORT.
--- NOTE | 2021-07-07 18:00 | NUR ---
PT DRESSED, DISCHARGE REVIEWED AGAIN WITH PT. PT VERBALIZES UNDERSTANDING. ARM SLING PLACED TO R ARM. SALINE LOCK REMOVED AND CLOTH DOT DRESSING IN PLACE TO R RADIAL SITE ALONG WITH ARM BOARD. PT TO PRIVATE VEHICLE WITH ONE STAFF.
== END 2021-07-07 23:25 | disposition home or self-care (01) ==
LOC: MHTC 06:28
DX: I48.91 Unspecified atrial fibrillation (principal); I70.0 Atherosclerosis of aorta; I08.0 Rheumatic disorders of both mitral and aortic valves
CPT/HCPCS: 93325; A9270; C8925; J2704; J7030; Q9957

== ENCOUNTER 2021-11-20 22:18 | Observation (INO) | payer OTHER ==
[~2021-11-20] VITALS: Ht 175.3 cm; Wt 94.6 kg
[~2021-11-20 22:18] MED LIST changes: +Isosorbide Mono60 MG PO
[2021-11-20] MEDS ORDERED: Aspir 8181 MG PO (22:44)
[2021-11-20 22:47] LABS: BASOPHILS ABSOLUTE AUTO 0.01 K/mm3 (0.00-0.23); BASOPHILS PERCENT AUTO 0 % (0-2); EOSINOPHILS PERCENT AUTO 0 % (0-6); Hematocrit 35.6 % (37.0-53.0); Hemoglobin 11.4 g/dL (13.5-17.5); IMMATURE GRAN ABSOLUTE AUTO 0.03 K/mm3 (0.00-0.10); IMMATURE GRAN PERCENT AUTO 0 % (0-1); LYMPHOCYTES ABSOLUTE AUTO 0.98 K/mm3 (0.84-5.20); LYMPHOCYTES PERCENT AUTO 10 % (21-46); MONOCYTES ABSOLUTE AUTO 0.18 K/mm3 (0.16-1.47); MONOCYTES PERCENT AUTO 2 % (4-13); Mean Corpuscular HGB 31.4 pg (26.0-34.0); Mean Corpuscular Volume 98 fL (80-100); Mean Platelet Volume 10.7 fL (9.1-12.4); NEUTROPHILS PERCENT AUTO 88 % (41-73); Platelet Count 195 K/mm3 (150-400); RDW Coefficient Variation 13.9 % (11.7-14.2); RDW Standard Deviation 49.9 fL (35.1-46.3); Red Blood Cell Count 3.63 M/mm3 (4.30-5.90)
[2021-11-20 22:58] LABS: Albumin, Blood 3.4 g/dL (3.4-5.0); Albumin/Globulin Ratio 0.8 (0.8-1.8); Bilirubin, Total 0.6 mg/dL (0.1-1.0); Bun/Creatinine Ratio 21.7 (12.0-20.0); Calcium, Blood 8.7 mg/dL (8.5-10.1); Creatinine, Blood 1.15 mg/dL (0.60-1.20); Globulin, Blood 4.1 g/dL (2.2-4.0); Potassium, Blood 4.8 mmol/L (3.5-5.5); Total Protein, Blood 7.5 g/dL (6.4-8.2)
[2021-11-20 23:25] LABS: International Normalized Ratio 1.16; Prothrombin Time Results 12.1 Sec (9.7-11.5)
[2021-11-21 00:51] LABS: Anti-Xa UFH, PHA Monitoring <0.10 IU/mL
--- NOTE | 2021-11-21 04:09 | NUR ---
ASSUMED CARE OF PATIENT AT APPROXIMATELY 0222 FROM ED RN GIANNI Meehan PATIENT ARRIVED VIA STRETCHER; TRANSFER VIA SLIDE SHEET AND MAX STAFF ASSIST. PATIENT ALERT AND ORIENTED X4; FORGETFUL AT TIMES AND REPEATS SELF AT TIMES. PATIENT REPORTS CHEST PAIN THAT IS IMPROVED AND "NO BIG DEAL" AT A 3 AND POINTS TO LEFT SIDE OF CHEST; REPORTS PAIN WAS RADIATING TO LEFT ARM BUT NOT IS JUST IN LEFT CHEST; REPORTS MORPHINE DID NOT HELP BUT DILAUDID AND NITRO PATCH HAVE HELPED. PATIENT REPORTS HE HAD SOME DIZZINESS AND NAUSEA BEFORE ARRIVAL TO UNIT. PATIENT DENIES NUMBNESS AND DIZZINESS. ADMISSION COMPLETE. PATIENT REPORTS ON 11/20 AT 1130 HE HAD A TIA AND THEN A WATCHMAN DEVICE WAS PLACED AND HE WAS DISCHARGED FROM [facility] SAME DAY. PIV INFUSING HEPARIN GTT.
--- NOTE | 2021-11-21 05:56 | NUR ---
PATIENT SLEPT ABOUT TWO HOURS SINCE ARRIVAL. PATIENT ATTEMPTED TO AMBULATED INDEPENDENTLY. NO OTHER ACUTE CHANGES TO REPORT.
--- NOTE | 2021-11-21 10:22 | NUR ---
CARE ASSUMPTION THIS RN ASSUMED CARE AT 0700 FROM CAROL CANALES. VSS. TELE AFIB 70-80S. SPO2 >90% ON RA. PATIENT IS ALERT AND ORIENTED X4. PERRLA. NEURO INTACT. PATIENT REPORTS NO PAIN. PATIENT REPORTS NO CHEST PAIN/PRESSURE. CAP REFILL <3SECONDS. STRONG RADAIL AND PEDIS PULSES. TRACE EDEMA IN LOWER EXTREMITIES. PATIENT REPORTS NO SHORTNESS OF BREATH. LUNG SOUNDS CLEAR. PATIENT HAS SOME BRUSING AND SCRATCHES ON ARMS BILATERALLY FROM PUPPY AT HOME. ABD IS ACTIVE NONTENDER. SEE SHIFT ASSESSMENT FOR FURTHER DETAILS. PATIENT HAD HEPARIN INFUSING AT START OF THIS RN SHIFT, WAS TURNED OFF PER PHARMACY FOR ONE HOUR DUE TO HIGH LEVELS, AND RESTARTED AT 12U/KG/HR. PATIENT IS ON BED REST DUE TO CURRENT CONDTION, BUT USES THE BEDSIDE URINAL INDEPDENTLY. PATIENT HAD A CRITICAL TROP THIS AM, NO CHEST PAIN OR CHANGES IN CONDITION, THIS RN NOTIFED MD PETTY OF LEVEL. SEE CRITICAL CARE CHARTING SECTION. PATIENT AT BEDSIDE. PATIENT DID NOT EAT BREAKFAST THIS AM DUE TO AWAITING CARDIO CONSULT. PATIENT USES CALL LIGHT APPROPRIATELY. CALL LIGHT WITHIN REACH AND BED IN LOWEST POSITION. WILL CONTINUE TO MONITOR AND PROVIDE CARE.
--- NOTE | 2021-11-21 16:33 | NUR ---
UPDATE PATIENT STATED HE WAS HAVING LEFT SIDE CHEST NUMBNESS AND RATED IT AT 5, ON SCALE OF 0-10, 10 BEING THE WORST PAIN. PATIENT STATED IT DOESN'T FEEL HOW IT FELT LAST NIGHT, IT JUST FEELS NUMB. PATIENT REDEIVED IV FENTAYNL PER EMAR, SEE EMAR. WHEN REASSESSING PATIENT RATED IT AT A 3, AND STATED THAT IT IS IMPROVING. CALL LIGHT IS WITHIN REACH AND BED IS IN LOWEST POSITION. WILL CONTINUE TO MONITOR AND PROVIDE CARE.
--- NOTE | 2021-11-21 16:56 | NUR ---
SHIFT SUMMARY PATIENT NEURO REMAINS INACT. PATIENT CHEST NUMBNESS HAS DECREAED TO A 1. PATIENT VSS. PATIENT USES CALL LIGHT APPROPRIATELY. NO ACUTE CHANGES THIS SHIFT. CALL LIGHT WITHIN REACH AND BED IN LOWEST POSITION. WILL CONITNUE TO MONITOR AND PROVIDE CARE UNTIL HAND OFF WITH NEXT SHIFT.
--- NOTE | 2021-11-21 21:36 | NUR ---
ASSUMED CARE OF PATIENT AT APPROXIMATELY 1915 FROM VARUN Parekh RN. PATIENT ALERT AND ORIENTED X4; ONE ASSIST OUT OF BED. PATIENT CURRENTLY DENIES CP/PRESSURE, PAIN ELSEWHERE, NUMBNESS, DIZZINESS, AND NAUSEA. AFIB ON TELE 70'S; OXYGEN SATURATION ABOVE 90% ON ROOM AIR. PIV INFUSING HEPARIN GTT.
--- NOTE | 2021-11-22 06:20 | NUR ---
PATIENT SLEPT ABOUT FIVE HOURS LAST NIGHT. NO OTHER ACUTE CHANGES.
[2021-11-22 09:13] LABS: BASOPHILS ABSOLUTE AUTO 0.05 K/mm3 (0.00-0.23); BASOPHILS PERCENT AUTO 1 % (0-2); EOSINOPHILS ABSOLUTE AUTO 0.16 K/mm3 (0.00-0.68); EOSINOPHILS PERCENT AUTO 2 % (0-6); Hematocrit 34.3 % (37.0-53.0); Hemoglobin 10.7 g/dL (13.5-17.5); IMMATURE GRAN ABSOLUTE AUTO 0.03 K/mm3 (0.00-0.10); IMMATURE GRAN PERCENT AUTO 0 % (0-1); LYMPHOCYTES ABSOLUTE AUTO 1.82 K/mm3 (0.84-5.20); LYMPHOCYTES PERCENT AUTO 21 % (21-46); MONOCYTES ABSOLUTE AUTO 0.79 K/mm3 (0.16-1.47); MONOCYTES PERCENT AUTO 9 % (4-13); Mean Corpuscular HGB 30.7 pg (26.0-34.0); Mean Corpuscular HGB Conc 31.2 g/dL (31.5-36.5); Mean Corpuscular Volume 98 fL (80-100); Mean Platelet Volume 10.9 fL (9.1-12.4); NEUTROPHILS ABSOLUTE AUTO 5.68 K/mm3 (1.96-9.15); NEUTROPHILS PERCENT AUTO 67 % (41-73); Platelet Count 164 K/mm3 (150-400); RDW Coefficient Variation 14.4 % (11.7-14.2); RDW Standard Deviation 51.9 fL (35.1-46.3); Red Blood Cell Count 3.49 M/mm3 (4.30-5.90); White Blood Cell Count 8.53 K/mm3 (4.00-11.30)
--- NOTE | 2021-11-22 09:31 | NUR ---
CARE ASSUMPTION THIS RN ASSUMED CARE FROM CAROL CANALES AT 0700. VSS. TELE AFIB 60S. PATIENT IS ALERT AND ORIENTED X4. PERRLA. NEURO IS INTACT. PATIENT REPORTS NO PAIN. PATIENT REPORTS NO CHEST PAIN. STRONG RADIAL AND PEDIS PULSES. NO EDEMA THIS AM. PATIENT REPORTS NO SHORTNESS OF BREATH. CLEAR LUNG SOUNDS. PATIENT HAS SOME BRUSING/SCABS THROUGHOUT FROM PUPPY AT HOME. ABD IS ACTIVE NONTENDER. SEE SHIFT ASSESSMENT FOR FURTHER DETAILS. HEPARIN DRIP AT 12U/KG/HR. PATIENT UP TO THE BATHROOM THIS AM AND DID AM CARE INDEPDENTLY. THIS RN PROVIDED THERAPUETIC COMMUNICATION AND ACTIVE LISTENING. CALL LIGHT IS WITHIN REACH AND BED IN LOWEST POSITION. WILL CONTINUE TO MONITOR AND PROVIDE CARE.
[2021-11-22 09:32] LABS: Bun/Creatinine Ratio 23.8 (12.0-20.0); Calcium, Blood 8.7 mg/dL (8.5-10.1); Creatinine, Blood 0.97 mg/dL (0.60-1.20); Potassium, Blood 3.6 mmol/L (3.5-5.5)
--- NOTE | 2021-11-22 09:43 | NUR ---
UPDATE MD PETTY IN TO SEE PATIEN THIS AM. PLAN AT THIS TIME IS FOR PATIENT TO DISCHARGE HOME TODAY LONG TROP LEVEL HAS NOT INCREASED.
[2021-11-22] MEDS ORDERED: Apple Cider Vi300 MG PO (11:06)
[2021-11-22] MEDS ORDERED: ELIQUIS5 M2 PO (11:09)
--- NOTE | 2021-11-22 12:18 | NUR ---
DISCHARGE EDUCATION THIS RN WENT OVER DISCHARGE EDUCATION, FOLLOW UP APPOINTMENTS, AND MEDICATIONS. THERE WAS NO CHANGES TO THE PATIENT MEDICATION LIST, AND PATIENT AND PATIENT VERABLIZED UNDERSTANDING OF THEIR CURRENT MEDICATIONS. THIS RN WENT OVER ANGINA, WHAT CAUSES IT, RISK FACTORS, WHAT TO DO WHEN IT OCCURS, ETC. AND PROVIDED A PRINTED OUT EDUCATION PACKET FOR THE PATIENT AND FAMILY. THIS RN WENT OVER THE IMPROTANCE OF FOLLOW UP APPOINTMENTS WITH PRIMARY CARE PROVIDER AND ELEMENTARY EDUCATOR. PER PATIENT AND THEY ALREADY HAVE APPOINTMENTS SCHEDULED. PATIENT IV PULLED AND CATHETER TIP IN INTACT. PATIENT LEFT WALKING OUT WITH THIS RN. PATIENT WAS IN NO DISTRESS WHEN LEAVING. PATIENT HAD ALL BELONGINGS AND DISCHARGE EDUCATION WITH HIM.
== END 2021-11-22 12:15 | disposition home or self-care (01) ==
LOC: ER 22:18 → PCU 22:19
PROVIDERS: Internal Medicine; Student in an Organized Health Care Education/Training Program; ADMIT Internal Medicine
DX: R07.89 Other chest pain (principal); I25.10 Atherosclerotic heart disease of native coronary artery without angina pectoris; I25.5 Ischemic cardiomyopathy; R74.8 Abnormal levels of other serum enzymes; E11.9 Type 2 diabetes mellitus without complications; I10 Essential (primary) hypertension; E78.5 Hyperlipidemia, unspecified; K21.9 Gastro-esophageal reflux disease without esophagitis; I48.21 Permanent atrial fibrillation; Z95.5 Presence of coronary angioplasty implant and graft; Z79.4 Long term (current) use of insulin; Z79.899 Other long term (current) drug therapy
CPT/HCPCS: 36415; 71045; 80048; 80053; 82947; 83880; 84484; 85025; 85520; 85610; 85730; 93005; 93010; 93306; 96374; 96375; 96376; A9270; G0378; J1170; J1644; J1815; J2270; J3010

== ENCOUNTER 2021-12-11 05:55 | Day surgery (SDC) | payer OTHER ==
[~2021-12-11] VITALS: Ht 172.7 cm; Wt 97.0 kg
[~2021-12-11 05:55] MED LIST changes: +TORSE20 PO
--- NOTE | 2021-12-11 11:36 | NUR ---
PT ARRIVED TO PCU UNIT AT 0930 VIA HOSPITAL BED AND ON RA. VSS. PT PACEMAKER SITE, LEFT UPPER CHEST WALL, C/D/I. NO REPORTED PAIN AT THIS TIME. LUNG SOUNDS CLEAR/DIM. NO REPORT OF SOB OR CHEST PAIN. PT IS ALERT UPON ARRIVAL. AT BEDSIDE UPON ARRIVAL. TELE SHOWS HR PACED AT 75BPM. NO REPORT OF NAUSEA.
--- NOTE | 2021-12-11 18:05 | NUR ---
SHIFT SUMMARY PT ARRIVED FROM [facility]ENTER AT 0930, PACEMAKER PLACED DURING PROCEDURE. PT A/O X4 SINCE ARRIVAL AND COOPERATIVE OF CARE. VSS SINCE ARRIVAL TO UNIT. NO REPORT OF CHEST PAIN/PRESSURE SINCE ARRIVAL TO UNIT. PACER SITE C/D/I, ICE PACK IN PLACE ALONG WITH SLING BEING IN PLACE. HR PACED AT 75.
[2021-12-12 04:14] LABS: Hematocrit 29.6 % (37.0-53.0); Hemoglobin 9.4 g/dL (13.5-17.5); Mean Corpuscular HGB Conc 31.8 g/dL (31.5-36.5); Mean Corpuscular Volume 98 fL (80-100); Mean Platelet Volume 10.3 fL (9.1-12.4); Platelet Count 201 K/mm3 (150-400); RDW Coefficient Variation 14.4 % (11.7-14.2); RDW Standard Deviation 51.7 fL (35.1-46.3); Red Blood Cell Count 3.03 M/mm3 (4.30-5.90); White Blood Cell Count 6.48 K/mm3 (4.00-11.30)
[2021-12-12 04:45] LABS: Albumin/Globulin Ratio 0.8 (0.8-1.8); Bilirubin, Total 0.6 mg/dL (0.1-1.0); Bun/Creatinine Ratio 18.7 (12.0-20.0); Creatinine, Blood 1.07 mg/dL (0.60-1.20); Globulin, Blood 3.7 g/dL (2.2-4.0); Potassium, Blood 3.7 mmol/L (3.5-5.5); Total Protein, Blood 6.7 g/dL (6.4-8.2)
--- NOTE | 2021-12-12 06:52 | NUR ---
NOC SHIFT SUMMARY PT ORIENTED X4 OVERNIGHT, PPM SITE CDI W/GAUZE AND TEGADERM. L ARM IN SLING AND EDUCATED ON USE. PAIN TO PPM SITE RELIEVED W/AVAILABLE PRNS. VPACED ON TELEMETRY. WILL CONTINUE TO MONITOR AND PASS ON TO DAY RN
[2021-12-12] MEDS ORDERED: GENICIN500 M1 PO (11:35)
--- NOTE | 2021-12-12 13:16 | NUR ---
DISCHARGE UPDATE DISCHARGE PACKET GONE OVER WITH PT AND PT AT 1200. PT LEFT UNIT AT 1220 VIA WHEELCHAIR AND ON RA. PT BELONGINGS IN BAG AND WITH PT DURING DISCHARGE. PT DISCHARGE PACKET, ALONG WITH PACEMAKER CARD, WITH PT DURING DISCHARGE. PT ABLE TO TRANSFER SELF TO AND FROM WHEELCHAIR WITH NO ASSISTANCE, TOLERATED WELL.
== END 2021-12-12 12:21 | disposition home or self-care (01) ==
LOC: MHTC 05:55 → PCU 09:09 → MHTC 12-12 12:21
PROVIDERS: Internal Medicine Cardiovascular Disease
DX: I25.5 Ischemic cardiomyopathy (principal); I44.7 Left bundle-branch block, unspecified; E11.9 Type 2 diabetes mellitus without complications; I25.708 Atherosclerosis of coronary artery bypass graft(s), unspecified, with other forms of angina pectoris; I48.0 Paroxysmal atrial fibrillation; I11.0 Hypertensive heart disease with heart failure; I50.9 Heart failure, unspecified; J45.909 Unspecified asthma, uncomplicated; I25.10 Atherosclerotic heart disease of native coronary artery without angina pectoris; I25.2 Old myocardial infarction; J44.9 Chronic obstructive pulmonary disease, unspecified; E78.00 Pure hypercholesterolemia, unspecified; Z95.1 Presence of aortocoronary bypass graft; Z95.5 Presence of coronary angioplasty implant and graft; Z79.01 Long term (current) use of anticoagulants; Z79.82 Long term (current) use of aspirin; Z79.4 Long term (current) use of insulin
CPT/HCPCS: 33225; 33249; 36415; 71046; 80053; 85027; 93005; 93010; 99152; 99153; A9270; C1769; C1882; C1894; C1895; J0690; J1644; J1815; J2250; J3010; J7030; J7040; Q9967

== ENCOUNTER 2022-03-09 03:36 | Inpatient (IN) | payer OTHER ==
[~2022-03-09] VITALS: Ht 180.3 cm; Wt 93.9 kg
[~2022-03-09 03:36] MED LIST changes: +GENICIN500 M1 PO; +INSULANI SC; +LOSA25 PO
[2022-03-09 05:13] LABS: BASOPHILS ABSOLUTE AUTO 0.02 K/mm3 (0.00-0.23); BASOPHILS PERCENT AUTO 0 % (0-2); EOSINOPHILS ABSOLUTE AUTO 0.08 K/mm3 (0.00-0.68); EOSINOPHILS PERCENT AUTO 1 % (0-6); Hematocrit 24.9 % (37.0-53.0); Hemoglobin 7.6 g/dL (13.5-17.5); IMMATURE GRAN ABSOLUTE AUTO 0.02 K/mm3 (0.00-0.10); IMMATURE GRAN PERCENT AUTO 0 % (0-1); LYMPHOCYTES ABSOLUTE AUTO 1.32 K/mm3 (0.84-5.20); LYMPHOCYTES PERCENT AUTO 19 % (21-46); MONOCYTES ABSOLUTE AUTO 0.62 K/mm3 (0.16-1.47); MONOCYTES PERCENT AUTO 9 % (4-13); Mean Corpuscular HGB 29.5 pg (26.0-34.0); Mean Corpuscular HGB Conc 30.5 g/dL (31.5-36.5); Mean Corpuscular Volume 97 fL (80-100); Mean Platelet Volume 10.7 fL (9.1-12.4); NEUTROPHILS ABSOLUTE AUTO 4.81 K/mm3 (1.96-9.15); NEUTROPHILS PERCENT AUTO 70 % (41-73); Platelet Count 187 K/mm3 (150-400); RDW Coefficient Variation 13.8 % (11.7-14.2); RDW Standard Deviation 48.5 fL (35.1-46.3); Red Blood Cell Count 2.58 M/mm3 (4.30-5.90); White Blood Cell Count 6.87 K/mm3 (4.00-11.30)
[2022-03-09 05:18] LABS: Albumin, Blood 3.1 g/dL (3.4-5.0); Albumin/Globulin Ratio 0.7 (0.8-1.8); Bilirubin, Total 0.4 mg/dL (0.1-1.0); Bun/Creatinine Ratio 22.8 (12.0-20.0); Calcium, Blood 8.7 mg/dL (8.5-10.1); Creatinine, Blood 1.45 mg/dL (0.60-1.20); Globulin, Blood 4.2 g/dL (2.2-4.0); Potassium, Blood 4.4 mmol/L (3.5-5.5); Total Protein, Blood 7.3 g/dL (6.4-8.2)
[2022-03-09 05:46] LABS: International Normalized Ratio 1.31; Prothrombin Time Results 13.5 Sec (9.7-11.5)
[2022-03-09 07:04] LABS: Percent Saturation 4.9 % (20.0-50.0)
[2022-03-09 09:09] LABS: Hematocrit 25.9 % (37.0-53.0); Hemoglobin 7.9 g/dL (13.5-17.5)
[2022-03-09 16:01] LABS: Hematocrit 26.5 % (37.0-53.0); Hemoglobin 8.3 g/dL (13.5-17.5)
--- NOTE | 2022-03-09 18:49 | NUR ---
SHIFT SUMMARY PT WAS AN ER ADMIT THIS SHIFT, BUT HE IS A/Ox4 AND FOLLOWS DIRECTIONS GIVEN BY STAFF. PT HAS REPORTED 1 MAROON BM SINCE HIS ADMISSION TO THE PCU AND OFTEN FEELS DIZZY WITH AMBULATION. PT ALSO BECOMES SOB WITH AMBULATION OR WITH BG POSITION CHANGES. HOWEVER, PT MAINTAINS SPO2 >96% ON RA. ABD IS NON TENDER WITH BS PRESENT. PT REPORTED SOME MODERATE CP THIS PM. NOTIFIED AND EKG PERFORMED WELL FOLLOW UP TROP LABS. PT HAS EXTENSIVE HEART HX AND WILL BE CONTINUE TO BE CLOSELY MONITORED. PT RECEIVING IV PROTONIX, BUT HAS NOT REPORTED AN N/V T/O THE SHIFT. BP HAS IMPROVED FROM THE ER WITH BP RANGING 120-130'S. GI CONSULT ORDERED. LIZZIE, PATY T/O MY SHIFT
--- NOTE | 2022-03-09 20:44 | NUR ---
CARE ASSUMPTION: PATIENT RESTING IN BED, A&O X4, DENIES SOB OR CHEST PAIN AT THIS TIME. NO N/V/D. IVS PATENT. VS WNL ON RA. DR. REBOLLEDO BY FOR CONSULT. PATIENT ON REGULAR DIET TONIGHT AND RETURN TO CLEAR LIQUIDS TOMORROW. PLAN FOR UPPER AND LOWER ENDOSCOPY ON WEDNESDAY, 03/11.
[2022-03-09 21:56] LABS: Hemoglobin 8.6 g/dL (13.5-17.5)
[2022-03-10 00:10] LABS: Hematocrit 25.1 % (37.0-53.0); Hemoglobin 7.9 g/dL (13.5-17.5)
--- NOTE | 2022-03-10 00:20 | NUR ---
CARE ASSUMPTION: PATIENT A&O X4, DENIES SOB OR CHEST PAIN AT BEGINNING OF SHIFT. PATIENT COLOR BECAME ASHEN ~2200, AGITATED, COLD. VS WNL AND PATIENT DENIED RECENT BM AND HAD SCANT CLEAR SPUTUM IN EMESIS BAG. CALLED MD FOR UPDATE AND OBTAINED NEW ORDER FOR H&H. PATIENT ASLEEP AT THIS TIME WITH CALL LIGHT IN PLACE.
--- NOTE | 2022-03-10 02:22 | NUR ---
PATIENT ARRIVED TO ICU 4 POST CODE BLUE. PATIENT INTUBATED WITH VENT AV 16, TV 500, PEEP 5, FIO2 35%. PATIENT UNRESPONSIVE BREATHING OVER VENT USING SECONDARY MUSCLES. OG PLACED, DONNELLY WITH TEMP PROBE PLACED AND THEN FAMILY IN TO SEE PATIENT. ERICA AND DAUGHTER SARAH. MONITOR SHOWING BBB WITH OCCASIONAL PACER. PATIENT HAS AICD/PACER. DOCTOR PRETE AT BEDSIDE SEE NEW ORDERS.
[2022-03-10 02:46] LABS: PCO2 Arterial 36.3 mmHg (35-45); PO2 Arterial 97.3 mmHg (80-100); pH Blood Arterial 7.24 (7.35-7.45)
[2022-03-10 03:02] LABS: BASOPHILS ABSOLUTE AUTO 0.04 K/mm3 (0.00-0.23); BASOPHILS PERCENT AUTO 0 % (0-2); EOSINOPHILS ABSOLUTE AUTO 0.03 K/mm3 (0.00-0.68); EOSINOPHILS PERCENT AUTO 0 % (0-6); Hematocrit 26.9 % (37.0-53.0); IMMATURE GRAN ABSOLUTE AUTO 0.25 K/mm3 (0.00-0.10); IMMATURE GRAN PERCENT AUTO 2 % (0-1); LYMPHOCYTES ABSOLUTE AUTO 5.18 K/mm3 (0.84-5.20); LYMPHOCYTES PERCENT AUTO 36 % (21-46); MONOCYTES ABSOLUTE AUTO 0.96 K/mm3 (0.16-1.47); MONOCYTES PERCENT AUTO 7 % (4-13); Mean Corpuscular HGB Conc 29.7 g/dL (31.5-36.5); Mean Corpuscular Volume 101 fL (80-100); Mean Platelet Volume 10.8 fL (9.1-12.4); NEUTROPHILS PERCENT AUTO 55 % (41-73); NRBC ABSOLUTE 0.11 K/mm3 (0.00-0.02); NRBC Auto 0.8 /100 WBC (0.0-0.2); Platelet Count 207 K/mm3 (150-400); RDW Coefficient Variation 14.1 % (11.7-14.2); RDW Standard Deviation 51.5 fL (35.1-46.3); Red Blood Cell Count 2.67 M/mm3 (4.30-5.90); White Blood Cell Count 14.26 K/mm3 (4.00-11.30)
--- NOTE | 2022-03-10 03:08 | NUR ---
CODE BLUE/TRANSFER OF CARE SUMMARY: ~0145 THIS RN HEARD SOMETHING HIT THE GROUND IN PCU 6 AND TURNED TO SEE PATIENT'S TELE BOX ON THE FLOOR AND PATIENT CRAWLING OUT OF BED THEN KNEELING AT THE BEDSIDE. THIS RN TURNED ON ROOM LIGHT AND ASKED PATIENT WHAT WAS GOING ON. PATIENT STARED AT THIS RN BUT DID NOT RESPOND. THIS RN ASKED PATIENT IF HE KNEW WHERE HE WAS AND PATIENT RESPONDED "I'M IN THE HOSPITAL." THIS RN TOLD PATIENT WE NEEDED TO GET HIM BACK IN BED. PATIENT SAID "FINE" AND SAT ON HIS BOTTOM. THIS RN CALLED VETERINARIAN HELPER FOR HELP AIDING PATIENT BACK INTO BED. WHEN ASSISTANCE ARRIVED PATIENT PULLED HIMSELF UP AND JUMPED INTO BED SIDEWAYS WITH HIS HEAD AGAINST SIDE RAIL. WHILE REPOSITIONING PATIENT IN BED HE FOUGHT THE BP CUFF AND PUSHED RNS' HANDS AWAY. PATIENT HAD AN INCONTINENT EPISODE AT THIS TIME AND TECH WAS CALLED TO BRING SUPPLIES TO ASSIST WITH BED CHANGE AND APPLY ATTENDS. PATIENT AND BEDDING WERE CHANGED AND AT THIS TIME PATIENT'S SPEECH BECAME GARBLED AND PATIENT APPEARED TO STOP BREATHING. THIS RN FELT FOR BREATH AND PATIENT WAS EXPELLING AIR BUT EYELIDS WERE CLOSED TIGHTLY. PATIENT HAD PREVIOUSLY BEEN SQUEEZING THIS RN'S HAND BUT HAND WAS LIMP AGAINST SIDE. THIS RN OPENED PATIENT'S EYELIDS AND NOTED PATIENT HAD PINPOINT PUPILS. THE VETERINARIAN HELPER CALLED ICU VETERINARIAN HELPER TO COME TO BEDSIDE AND THIS RN STEPPED OUTSIDE THE ROOM TO CALL THE RESIDENT. THE RESIDENT DIDN'T ANSWER FIRST CALL SO THIS RN HUNG UP AND REDIALED. WHEN THE RESIDENT ANSWERED THIS RN UPDATED ON PATIENT STATUS. DURING THE UPDATE A CODE BLUE WAS CALLED AT 0207 ON THIS PATIENT. THE RESIDENT STATED SHE WOULD BE RIGHT UP. FULL CODE STATUS WAS CONFIRMED. ASSISTING STAFF MADE AWARE PATIENT HAS PACER. PATIENT RECEIVED COMPRESSIONS, MEDICATIONS PER EMAR, AND INTUBATION. MDS, RT, AND LAB WERE AT BEDSIDE. MEANINGFUL PULSE AND BP WNL WAS ACHIEVED AND PATIENT WAS TRANSFERRED TO ICU 4. BEDSIDE REPORT GIVEN TO FACILITY MAINTENANCE MECHANIC ASSUMING CARE. NURSE SUPERVISOR NUTRITIONAL YEAST CALLED THE PATIENT'S AND SHE ARRIVED ON UNIT AT 0240.
[2022-03-10 03:11] LABS: Bun/Creatinine Ratio 21.4 (12.0-20.0); Calcium, Blood 8.6 mg/dL (8.5-10.1); Creatinine, Blood 1.82 mg/dL (0.60-1.20); Magnesium, Blood 2.3 mg/dL (1.6-2.4); Phosphorus, Blood 6.8 mg/dL (2.5-4.9); Potassium, Blood 3.7 mmol/L (3.5-5.5)
[2022-03-10 03:18] LABS: International Normalized Ratio 1.45; Prothrombin Time Results 14.9 Sec (9.7-11.5)
--- NOTE | 2022-03-10 03:38 | NUR ---
PATIENT BACK FROM CT OF HEAD, DIAPHORETIC, PULLING ARMS UP AND IN AND HOLDING THEM STIFF. PUPILS REMAIN PINPOINT. NS BOLUS STARTED PER DOCTOR RUDY ORDERS. PATIENTS ERICA, AND DAUGHTER SARAH AT BEDSIDE.
[2022-03-10 04:17] LABS: Source, Urine Foley catheter
[2022-03-10 04:19] LABS: Bilirubin, Urine Neg (Neg); Blood, Urine Neg (Neg); Glucose Qualitative, Urine Neg (Neg); Ketones, Urine Neg (Neg); Leukocyte Esterase, Urine 1+ (Neg); Nitrite, Urine Neg (Neg); Protein, Urine 2+ (Neg); Specific Gravity, Urine 1.015 (1.003-1.022); Urobilinogen, Urine NORM (Normal)
[2022-03-10 04:46] LABS: Appearance, Urine Hazy (Clear); Color, Urine Yellow (P-Yellow)
[2022-03-10 04:47] LABS: Bacteria Rare /hpf; Red Blood Cells, Urine Not Seen /hpf (0-2); Squamous Epithelial Cells Not Seen /hpf (Few); White Blood Cells, Urine 0-2 /hpf (0-5)
--- NOTE | 2022-03-10 07:00 | NUR ---
ASSUMED CARE AT 0700 REPORT RECEIVED FROM OFFGOING RN, PT ADMITTED TO ICU AFTER CARDIAC ARREST, S/P CHEST COMPRESSIONS AND INTUBATION. AT BEDSIDE, DAUGHTER HAS ALSO BEEN IN TO VISIT. PT IS DNR, NO PLANS TO WITHDRAW CARE AT THIS TIME. RN TO CONTINUE TO FOLLOW
[2022-03-10 13:46] LABS: Hematocrit 28.1 % (37.0-53.0); Hemoglobin 8.5 g/dL (13.5-17.5); Mean Corpuscular HGB 29.3 pg (26.0-34.0); Mean Corpuscular HGB Conc 30.2 g/dL (31.5-36.5); Mean Corpuscular Volume 97 fL (80-100); Mean Platelet Volume 10.8 fL (9.1-12.4); NRBC ABSOLUTE 0.11 K/mm3 (0.00-0.02); NRBC Auto 0.7 /100 WBC (0.0-0.2); Platelet Count 232 K/mm3 (150-400); RDW Coefficient Variation 14.3 % (11.7-14.2); RDW Standard Deviation 50.4 fL (35.1-46.3); White Blood Cell Count 16.28 K/mm3 (4.00-11.30)
[2022-03-10 13:58] LABS: Magnesium, Blood 2.1 mg/dL (1.6-2.4)
[2022-03-10 14:08] LABS: Albumin, Blood 3.1 g/dL (3.4-5.0); Albumin/Globulin Ratio 0.8 (0.8-1.8); Bun/Creatinine Ratio 22.1 (12.0-20.0); Calcium, Blood 8.8 mg/dL (8.5-10.1); Creatinine, Blood 2.08 mg/dL (0.60-1.20); Potassium, Blood 4.5 mmol/L (3.5-5.5); Total Protein, Blood 7.1 g/dL (6.4-8.2)
--- NOTE | 2022-03-10 14:59 | NUR ---
Spiritual Care. Nurse Request. Pt. is intubated and non responsive. Spouse and several family members are present. Family verbalizes anticipation of the pts. transtion. Listen empathetically with a calming presence. Family shared that Pt. had once verbalized that he was a "heathen." Facilitate a life review with the family. Appropriate grief and laughter took place. [place] with Pt. and family. Will remain avilable to spouse and famioly. Family verbalized gratitude for the spiritual care visit.
--- NOTE | 2022-03-10 18:34 | NUR ---
END OF SHIFT NOTE NEURO: PUPILS 2, SLUGGISH. POSTURING UPPER EXTREMETIES, WITHDRAWS FROM PAIN BLE. DOES NOT FOLLOW COMMANDS CARDIAC: ATRIAL FIB WITH OCCASIONAL PACED BEATS. RATE 80-90'S. BP WNL. RESP: INTUBATED, NO CHANGES TO VENT SETTINGS. LARGE AMOUNT OF PORTILLO CLEAR SECRETIONS AT 1800. INCREASED RESP RATE, PRN PAIN MEDICATION ORDERED. GI: OGT CLAMPED, USED FOR MEDS ONLY. BS HYPOACTIVE. : TEMP PROBE DONNELLY IN PLACE, TEA COLORED URINE, UO APPROX 20ML/HR. SKIN: INTACT, SLIGHT OOZING FROM CATHETER ENTRANCE. IV: PIV X2, FLUSHING WELL, NS INFUSING AT 125ML/HR. PSYCH: FAMILY AT BEDSIDE THROUGHOUT SHIFT INCLUDING SPOUSE, DAUGHTER, GRANDDAUGHTER (PCU NURSE) AND SEVERAL EXTENDED FAMILY MEMBERS.
--- NOTE | 2022-03-10 20:00 | NUR ---
PATIENT REMAINS INTUBATED VENT ACVC+ 16, TV 500, PEEP 5 FIO2 30% SUCTIONING THIN PORTILLO SPUTUM VIA ETT. PATIENT PULLING ARMS IN AND ENTIRE BODY BECOMES STIFF WITH SLIGHT STIMULI, COUGH WITH SUCTIONING AND ORAL CARE, POSTURING WITH DEEP ORAL SUCTION MAKING IT DIFFICULT TO SEE IF HE HAS GAG. PUPILS FIXED AND PINPOINT. OG IN PLACE AND CLAMPED. DONNELLY DRAINING DARK RED WITH CLOTS URINE. APPEARS TO BE LEAKING. PATIENT PASSING SMALL DARK BLOODY STOOL. FAMILY IN ROOM NIECE FRED AND CLOSE FRIENDS.
--- NOTE | 2022-03-10 23:15 | NUR ---
[facility] GIVEN UPDATE AND LABS. NO NEW SUGGESTIONS FROM THEM AT THIS TIME.
[2022-03-11 03:28] LABS: BASOPHILS ABSOLUTE AUTO 0.01 K/mm3 (0.00-0.23); BASOPHILS PERCENT AUTO 0 % (0-2); EOSINOPHILS PERCENT AUTO 0 % (0-6); Hematocrit 24.6 % (37.0-53.0); Hemoglobin 7.8 g/dL (13.5-17.5); IMMATURE GRAN ABSOLUTE AUTO 0.05 K/mm3 (0.00-0.10); IMMATURE GRAN PERCENT AUTO 0 % (0-1); LYMPHOCYTES ABSOLUTE AUTO 1.13 K/mm3 (0.84-5.20); LYMPHOCYTES PERCENT AUTO 10 % (21-46); MONOCYTES ABSOLUTE AUTO 0.72 K/mm3 (0.16-1.47); MONOCYTES PERCENT AUTO 6 % (4-13); Mean Corpuscular HGB 29.9 pg (26.0-34.0); Mean Corpuscular HGB Conc 31.7 g/dL (31.5-36.5); Mean Corpuscular Volume 94 fL (80-100); NEUTROPHILS ABSOLUTE AUTO 9.43 K/mm3 (1.96-9.15); NEUTROPHILS PERCENT AUTO 83 % (41-73); NRBC Auto 1.8 /100 WBC (0.0-0.2); Platelet Count 160 K/mm3 (150-400); RDW Coefficient Variation 14.6 % (11.7-14.2); RDW Standard Deviation 48.8 fL (35.1-46.3); Red Blood Cell Count 2.61 M/mm3 (4.30-5.90); White Blood Cell Count 11.34 K/mm3 (4.00-11.30)
[2022-03-11 04:57] LABS: Albumin, Blood 2.7 g/dL (3.4-5.0); Albumin/Globulin Ratio 0.8 (0.8-1.8); Bilirubin, Total 1.1 mg/dL (0.1-1.0); Bun/Creatinine Ratio 26.4 (12.0-20.0); Calcium, Blood 8.3 mg/dL (8.5-10.1); Creatinine, Blood 2.16 mg/dL (0.60-1.20); Globulin, Blood 3.6 g/dL (2.2-4.0); Phosphorus, Blood 4.1 mg/dL (2.5-4.9); Total Protein, Blood 6.3 g/dL (6.4-8.2)
--- NOTE | 2022-03-11 06:35 | NUR ---
SUMMARY PATIENT REMAINS INTUBATED WITH VENT AC VC+ 16, TV 500, PEEP 5, FIO2 30% PATIENT PULLING BOTH ARMS UP ONTO HIS CHEST RISKING ACCIDENTAL SELF EXTUBATION. BILAT WRIST RESTRAINTS PLACED TO PREVENT ACCIDENTAL EXTUBATION. PUPILS 4 AND REACTIVE TO LIGHT. DONNELLY DRAINING CRANBERRY TO DARK RED URINE. OG REMAINS IN PLACE AND CLAMPED.
--- NOTE | 2022-03-11 07:00 | NUR ---
ASSUMED CARE AT 0700 NO FAMILY AT BEDSIDE. PT CONTINUES TO EXHIBIT BILAT ARM ADDUCTION/POSTURING. EYES FIXED IN UPWARD GAZE. EXPECT TERMINAL EXTUBATION TODAY. WILL AWAIT FAMILY AND MD ARRIVAL TO CONFIRM PLAN OF CARE. RN TO CONTINUE TO FOLLOW
--- NOTE | 2022-03-11 12:48 | NUR ---
BIVICD shock therapies turned "OFF" per Dr Pittman order r/t comfort care. [facility]/[place] report routed to Dr Gar
--- NOTE | 2022-03-11 14:27 | NUR ---
Spiritual Care Visit. Pt. has been extubated and is comfort care. Many family and friends are present. Spouse is appropriately cathartic. With a calming presence facilitate a life review. Family swings appropriately between laughter and memories to quiet contemplation. Prayed for Pt. and family. Family verbalized gratitude for the spiritual care visit.
--- NOTE | 2022-03-11 15:47 | NUR ---
Spiritual Care - EOL Pt. has transitioned. Family members are present and are appropriately grieving. With a calm presence and soft encouragement assist the family with any last questions. Spouse has decided on [facility] on [address] as the home of choice. They are not waiting on any other people to visit, and will let the nursing staff know when they are leaving. Family verbalized gratitude for the support of the ICU staff and the spiritual care visit.
--- NOTE | 2022-03-11 17:00 | NUR ---
TIME OF 1530 PT PASSED WITH FAMILY MEMBERS AT BEDSIDE. PRONOUNCED BY 2 RN'S AND DOCUMENTED. [facility]. [facility]DONOR SERVICES NOTIFIED OF TIME OF , FAXED ALL RECORDS REQUESTED, AWAITING A RETURN CALL WITH DIRECTION FOR POSSIBLE EYE/TISSUE DONOR.
== END 2022-03-11 15:30 | DRG 296 ==
LOC: ER 03:36 → ICUE 03:37 → ERHOLD 03:37 → PCU 13:28 → ICUE 03-10 02:20
PROVIDERS: Emergency Medicine; Family Medicine; Internal Medicine; Internal Medicine Critical Care Medicine; ADMIT Family Medicine
DX: I46.9 Cardiac arrest, cause unspecified (principal); I50.23 Acute on chronic systolic (congestive) heart failure; J96.00 Acute respiratory failure, unspecified whether with hypoxia or hypercapnia; K92.2 Gastrointestinal hemorrhage, unspecified; D62 Acute posthemorrhagic anemia; G93.1 Anoxic brain damage, not elsewhere classified; Z66 Do not resuscitate; Z51.5 Encounter for palliative care; I48.21 Permanent atrial fibrillation; D64.9 Anemia, unspecified; K21.9 Gastro-esophageal reflux disease without esophagitis; I08.0 Rheumatic disorders of both mitral and aortic valves; I25.10 Atherosclerotic heart disease of native coronary artery without angina pectoris; I25.5 Ischemic cardiomyopathy; E78.5 Hyperlipidemia, unspecified; J44.9 Chronic obstructive pulmonary disease, unspecified; N18.30 Chronic kidney disease, stage 3 unspecified; I12.9 Hypertensive chronic kidney disease with stage 1 through stage 4 chronic kidney disease, or unspecified chronic kidney disease; E11.22 Type 2 diabetes mellitus with diabetic chronic kidney disease; D50.9 Iron deficiency anemia, unspecified; D63.1 Anemia in chronic kidney disease; K63.5 Polyp of colon; G47.00 Insomnia, unspecified; G25.81 Restless legs syndrome; Z95.810 Presence of automatic (implantable) cardiac defibrillator; Z79.4 Long term (current) use of insulin; Z79.02 Long term (current) use of antithrombotics/antiplatelets; Z79.899 Other long term (current) drug therapy; Z95.5 Presence of coronary angioplasty implant and graft; Z95.1 Presence of aortocoronary bypass graft; Z90.49 Acquired absence of other specified parts of digestive tract; Z98.890 Other specified postprocedural states; Z87.891 Personal history of nicotine dependence
CPT/HCPCS: 31500; 36415; 36600; 51702; 70450; 71045; 80048; 80053; 81001; 82272; 82607; 82728; 82746; 82803; 82947; 83540; 83550; 83605; 83735; 84100; 84484; 85014; 85018; 85025; 85027; 85610; 85730; 86850; 86900; 86901; 87086; 92950; 93005; 93010; 93283; 94002; 94003; 96365; 96366; 96376; 99285-25; A9270; C9113; G0378; J1170; J1815; J2270; J2916; J3010; J7030